=== PATIENT | male | born 1960 | race Caucasian/White ===

== ENCOUNTER → 2022-01-24 14:26 | Outpatient (BNVA) | payer OTHER, SELFPAY | PROVIDERS: Family Provider Emergency Medicine Emergency Medical Services; PCP Emergency Medicine Emergency Medical Services; Referring Provider Family Medicine; Visit Provider Specialist | DX: H81.10 Benign paroxysmal vertigo, unspecified ear (principal); E11.9 Type 2 diabetes mellitus without complications; I10 Essential (primary) hypertension; Z86.73 Personal history of transient ischemic attack (TIA), and cerebral infarction without residual deficits; G47.30 Sleep apnea, unspecified | CPT/HCPCS: 95992; 99204; 99205 ==

== ENCOUNTER → 2022-04-26 15:11 | Outpatient (BNVA) | payer OTHER, SELFPAY | PROVIDERS: Family Provider Emergency Medicine Emergency Medical Services; PCP Emergency Medicine Emergency Medical Services; Visit Provider Specialist | DX: I99.8 Other disorder of circulatory system (principal) | CPT/HCPCS: G0463 ==